=== PATIENT | male | born 1995 | race Caucasian/White ===

== ENCOUNTER 2021-11-22 07:10 | Emergency (ER) | payer MEDICARE, MEDICAID, SELFPAY ==
[2021-11-22 07:24] VITALS: BP 120/80; PULSE 65; RESP 15; TEMP 36.8; O2SAT 98; BMI 35.4
--- NOTE | 2021-11-22 07:49 | W.ED.ABDPA2 ---
HPI - Abdominal Pain General: Chief Complaint: Abdominal Pain Stated Complaint: Sharp left side pain Time Seen by Provider: 11/22/21 07:11 Source: patient Mode of arrival: ambulatory History of Present Illness: 86-year-old male who presents emergency room with complaint of left-sided abdominal pain. Intermittent but progressively worsening over the last 5 days. He denies any association with eating or drinking. No association with urination. No vomiting no diarrhea no dysuria urgency or frequency no history of nephrolithiasis. He has not had any rash. He refers the pain to the posterior axillary line on the left flank it is not reproducible with palpation or movement. No injury or falls recently. MD elicited complaint: flank pain Onset (ago): day(s) (5) Pain Consistency: intermittent Location: L flank Severity: mild Quality: sharp Radiation: none Migration to: no migration Exacerbating factors: nothing Relieving factors: nothing Associated Symptoms: Denies anorexia, belching, bloating, change in bowel habits, change in stool character, chills, coffee ground emesis, constipation, GI cramping, diarrhea, dyspepsia, dysuria, excessive flatus, fever(s), heartburn, hematochezia, hematuria, hematemesis, fecal incontinence, loose stools, melena, nausea, poor appetite, syncope and vomiting Review of Systems Const: Denies: fever(s), chills, fatigue or malaise ENMT: Denies: throat pain, ear or mastoid pain, nasal discharge or nasal congestion Card: Denies: chest pain or syncope Resp: Denies: dyspnea, productive cough or non-productive cough GI: Denies: abdominal pain, nausea, vomiting, hematemesis, coffee ground emesis, heartburn, diarrhea, constipation, bloating, GI cramping, belching, excessive flatus, fecal incontinence, change in bowel habits, change in stool character, hematochezia or melena : Denies: flank pain, dysuria or hematuria Skin/Breast: Denies: rash or pruritus [facility] ED PFSH: Medical History Atypical chest pain Dandy-Walker syndrome variant Dizziness Elevated blood pressure reading LVH (left ventricular hypertrophy) Family History Other CAD (coronary artery disease) Cancer Dementia Diabetes Hyperlipidemia Hypertension Psychiatric illness Stroke Denies family history of Clotting disorder Chronic kidney disease (CKD) Anesthesia complication Bleeding disorder Family history of premature coronary artery disease Social History Smoking and tobacco status: never smoked Alcohol intake: never Physical Exam Const: COMMON NORMALS: no acute distress GENERAL APPEARANCE: cooperative and comfortable ORIENTATION/CONSCIOUSNESS: Yes awake, Yes oriented to person, Yes oriented to place and Yes oriented to time HENMT: COMMON NORMALS: normocephalic, atraumatic, hearing grossly normal bilaterally, external ears normal, EAC's normal, TM's normal bilaterally, Normal nasal mucous membranes and turbinates present, moist oral mucous membranes and oropharynx normal HEAD & SCALP: normocephalic and atraumatic NOSE: Normal nasal mucous membranes and turbinates present EXTERNAL EAR: Yes external ears normal EXTERNAL AUDITORY CANAL: EAC's normal TYMPANIC MEMBRANE: TM's normal bilaterally Eye: COMMON NORMALS: Equal, round and reactive pupils present, EOMs intact bilaterally, conjunctivae normal and no scleral icterus CONJUNCTIVA: Yes conjunctivae normal PUPIL: Yes Equal, round and reactive pupils present Neck/C-Spine: COMMON NORMALS: full ROM, no lymphadenopathy, supple and no JVD Lymph: LYMPHATIC: no lymphadenopathy noted and no lymphedema noted Resp: COMMON NORMALS: normal respiratory effort, No retractions, No use of accessory muscles and clear to auscultation bilaterally AUSCULTATION: clear to auscultation bilaterally Cardio: COMMON NORMALS: no JVD, regular rate, regular rhythm and No murmurs present (Cardio) RATE: regular rate RHYTHM: regular rhythm GI: COMMON NORMALS: Soft to palpation and No hepatosplenomegaly present AUSCULTATION: Yes normoactive bowel sounds PALPATION: Yes Soft to palpation, No Tenderness to palpation present (GI), No Guarding due to palpation present (GI) and Yes No hepatosplenomegaly present Back/Pelvis: OTHER: Pain reproducible with palpation along the posterior axillary line at the levels of the ninth and 10th ribs overlying them. No rash no vesicles noted Extremity: COMMON NORMALS: normal to inspection, capillary refill normal, no clubbing, cyanosis or edema, no calf tenderness and no pedal edema Neuro: SENSORIUM/ORIENTATION: Yes oriented to person, Yes oriented to place and Yes oriented to time Skin: COMMON NORMALS: no rashes or lesions noted GENERAL SKIN EXAM: no rashes or lesions noted Course Vital Signs: Vital signs: Vital Signs Temperature 98.2 F 11/22/21 07:24 Pulse Rate 65 11/22/21 07:24 Respiratory Rate 15 11/22/21 07:24 Blood Pressure 120/80 11/22/21 07:24 Pulse Oximetry 98 11/22/21 07:24 Oxygen Delivery Me thod 11/22/21 07:24 MDM - Abdominal Pain Medical Decision Making Abdominal exam unremarkable. Pain reproduced with palpation over the ribs laboratory results do not indicate any significant abnormality. Recommend observation treat his musculoskeletal follow-up if worsens or changes. Medical Records I reviewed the patient's medical records. Lab Data I reviewed the patient's lab results. : 11/22/21 07:54 11/22/21 07:54 Labs/Radiology: Laboratory Results WBC 8.1 10^3/uL (4.0-10.0) 11/22/21 07:54 RBC 5.31 10^6/uL (4.1-5.3) H 11/22/21 07:54 Hgb 16.3 g/dL (11.7-16.6) 11/22/21 07:54 Hct 47.8 % (42.0-52.0) 11/22/21 07:54 MCV 90.0 fl (80-94) 11/22/21 07:54 MCH 30.7 pg (28.0-34.0) 11/22/21 07:54 MCHC 34.1 g/dL (30.0-36.0) 11/22/21 07:54 RDW 11.7 % (12.1-15.1) L 11/22/21 07:54 Plt Count 287 10^3/cmm (130-400) 11/22/21 07:54 MPV 9.7 fL (7.4-10.4) 11/22/21 07:54 Neut % (Auto) 53.5 % 11/22/21 07:54 Lymph % (Auto) 31.7 % 11/22/21 07:54 [place] % (Auto) 9.2 % 11/22/21 07:54 Eos % (Auto) 3.2 % 11/22/21 07:54 Baso % (Auto) 0.5 % 11/22/21 07:54 Neut # (Auto) 4.31 10^3/uL (1.8-7.7) 11/22/21 07:54 Lymph # (Auto) 2.6 10^3/uL (0.8-4.8) 11/22/21 07:54 [place] # (Auto) 0.7 10^3/uL (0.2-0.9) 11/22/21 07:54 Eos # (Auto) 0.3 10^3/uL (0.0-0.8) 11/22/21 07:54 Baso # (Auto) 0.0 10^3/uL (0.0-0.1) 11/22/21 07:54 Nucleated RBC % (auto) 0 % 11/22/21 07:54 Nucleated RBCs # 0.0 /100WBC 11/22/21 07:54 Sodium 143 mmol/L (136-145) 11/22/21 07:54 Potassium 4.7 mmol/L (3.5-5.1) 11/22/21 07:54 Chloride 103 mmol/L (98-107) 11/22/21 07:54 Carbon Dioxide 30 mmol/L (22-29) H 11/22/21 07:54 Anion Gap 14.7 (5-19) 11/22/21 07:54 BUN 15 mg/dL (6-20) 11/22/21 07:54 Creatinine 0.9 mg/dL (0.7-1.2) 11/22/21 07:54 GFR Calculation 102.0 mL/min (90-130) 11/22/21 07:54 Glucose 84 mg/dL (65-115) 11/22/21 07:54 Calculated Osmolality 296 mOsm/kg (285-295) H 11/22/21 07:54 Calcium 9.6 mg/dL (8.5-10.5) 11/22/21 07:54 Total Bilirubin 0.4 mg/dL (0.15-1.2) 11/22/21 07:54 AST 25 U/L (0-40) 11/22/21 07:54 ALT 51 U/L (0-41) H 11/22/21 07:54 Alkaline Phosphatase 109 U/L (40-130) 11/22/21 07:54 Total Protein 7.3 g/dL (6.6-8.7) 11/22/21 07:54 Albumin 4.4 g/dL (3.5-5.2) 11/22/21 07:54 Globulin 2.9 g/dL (1.3-4.6) 11/22/21 07:54 Lipase 30 U/L (13-60) 11/22/21 07:54 Urine Color Yellow (Yellow) 11/22/21 08:20 Urine Appearance Clear (CLEAR) 11/22/21 08:20 Urine pH 7 (5-7) 11/22/21 08:20 Ur Specific [place] 1.010 (1.005-1.030) 11/22/21 08:20 Urine Protein Neg (Negative) 11/22/21 08:20 Urine Glucose (UA) Norm (Normal) 11/22/21 08:20 Urine Ketones 1+ (Negative) H 11/22/21 08:20 Urine Blood Neg (Negative) 11/22/21 08:20 Urine Nitrate Negative (Negative) 11/22/21 08:20 Urine Bilirubin Neg (Negative) 11/22/21 08:20 Urine Urobilinogen 1 mg/dL (Negative) H 11/22/21 08:20 Ur Leukocyte Esterase Negative (Negative) 11/22/21 08:20 Discharge Plan Discharge Patient Disposition: Home Clinical Impression: Abdominal wall pain in left flank Condition: Stable Prescriptions: New diclofenac sodium 75 mg tablet,delayed release (DR/EC) 75 mg PO Q12H PRN (Reason: pain) Qty: 20 0RF No Action loratadine 10 mg capsule 10 mg PO DAILY Discharge Orders: Discharge ED (Routine); Ordered 11/22/21 Ordered By: Geovani Molina Referrals: Jadon Garcia MD [Primary Care Provider] - Discharge Diet: Usual diet Discharge Activity: Increase activity as tolerated Patient Instructions: Abdominal Pain (ED), Opioid Safety Activity Restrictions/Additional Instructions: Follow-up with your primary care doctor if symptoms persist. Coding Level of Care Code ED Under Water Assistant for [place] Fwd Exam Comprehensive
[2021-11-22 08:01] LABS: Basophils % 0.5 %; Eosinophils # 0.3 10^3/uL (0.0-0.8); Eosinophils % 3.2 %; Hematocrit 47.8 % (42.0-52.0); Hemoglobin 16.3 g/dL (11.7-16.6); Lymphocytes # 2.6 10^3/uL (0.8-4.8); Lymphocytes % 31.7 %; Mean Corpuscular HGB Conc 34.1 g/dL (30.0-36.0); Mean Corpuscular Hemoglobin 30.7 pg (28.0-34.0); Mean Platelet Volume 9.7 fL (7.4-10.4); Monocytes # 0.7 10^3/uL (0.2-0.9); Monocytes % 9.2 %; Neutrophils # 4.31 10^3/uL (1.8-7.7); Neutrophils % 53.5 %; Nucleated Red Blood Cells % 0 %; Platelet Count 287 10^3/cmm (130-400); Red Blood Count 5.31 10^6/uL (4.1-5.3); Red Cell Distribution Width 11.7 % (12.1-15.1); White Blood Count 8.1 10^3/uL (4.0-10.0)
[2021-11-22] MEDS: sodium chloride 0.9% 1,000 ML 999 ML IV (08:02)
[2021-11-22 08:28] LABS: Alanine Aminotransferase 51 U/L (0-41); Albumin Level 4.4 g/dL (3.5-5.2); Alkaline Phosphatase 109 U/L (40-130); Blood Urea Nitrogen 15 mg/dL (6-20); Calcium 9.6 mg/dL (8.5-10.5); Carbon Dioxide 30 mmol/L (22-29); Chloride 103 mmol/L (98-107); Globulin 2.9 g/dL (1.3-4.6); Glucose 84 mg/dL (65-115); Lipase 30 U/L (13-60); Osmolality Calculated 296 mOsm/kg (285-295); Sodium 143 mmol/L (136-145); Total Bilirubin 0.4 mg/dL (0.15-1.2); Total Protein 7.3 g/dL (6.6-8.7)
[2021-11-22 08:29] LABS: Add Urine Microscopic? NO; Charge for UA Resulting for Rev
[2021-11-22 08:36] LABS: Anion Gap 14.7 (5-19); Aspartate Amino Transferase 25 U/L (0-40); Potassium 4.7 mmol/L (3.5-5.1)
[2021-11-22 08:48] LABS: Bilirubin Urine Neg (Negative); Blood Urine Neg (Negative); Glucose Urine UA Norm (Normal); Ketones Urine 1+ (Negative); Leukocyte Esterase Urine Negative (Negative); Nitrate Urine Negative (Negative); Protein Urine Neg (Negative); Urine Appearance Clear (CLEAR); Urine Color Yellow (Yellow); Urobilinogen Urine 1 mg/dL (Negative); pH Urine 7 (5-7)
[2021-11-22 09:35] VITALS: BP 136/72; PULSE 78; RESP 14; O2SAT 99
[2021-11-22 09:36] VITALS: BP 128/70; PULSE 72; RESP 14; O2SAT 99
== END 2021-11-22 09:38 | disposition home or self-care (01) ==
PROVIDERS: Emergency Provider Family Medicine; PCP Family Medicine
DX: R10.9 Unspecified abdominal pain (principal)
CPT/HCPCS: 80053; 81003; 83690; 85025; 96360; 99284; J7030

== ENCOUNTER 2022-01-11 23:28 | Observation (INO) | payer MEDICARE, MEDICAID, SELFPAY ==
[2022-01-11 23:36] VITALS: BP 120/83; PULSE 90; RESP 18; TEMP 37.1; O2SAT 98; BMI 35.3
--- NOTE | 2022-01-11 23:42 | ECG_ITS ---
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 Measurements Intervals [place] Rate: 83 P: 60 CT: 113 QRS: 32 QRSD: 87 T: 71 QT: 361 QTc: 426 Interpretive Statements SINUS RHYTHM WITH SHORT CT INTERVAL No previous ECG available for comparison Electronically Signed On 01-12-2022 16:48:13 CDT by Olga Melendez M.D. [email or web address] | EVEREST EDUSYS AND SOLUTIONSgeorge regional hospitalAito Technologiespomerene hospital.L[employer] Bronze/store/00/[id number]/[id number]"
--- NOTE | 2022-01-11 23:45 | XRR_ITS ---
PROCEDURE INFORMATION: Exam: XR Chest Exam date and time: 01/12/2022 12:11 AM Age: 27 years old Clinical indication: Pain; Chest pressure; Additional info: Cp TECHNIQUE: Imaging protocol: Radiologic exam of the chest. Views: 1 view. COMPARISON: CR XR chest 2V* [id number] 07/31/2016 9:57 AM FINDINGS: Lungs: There is no evidence of focal pulmonary consolidation. There is a small area of pleuroparenchymal scarring in the periphery of the right upper lobe, unchanged from the comparison study of 07/31/2016. Pleural spaces: No pleural effusion or pneumothorax. Heart/Mediastinum: The heart and mediastinum are normal in size. Bones/joints: Unremarkable. XR/XR chest 1V portable [id number] IMPRESSION: No acute findings.
[2022-01-12] VITALS (36 sets, daily range): BP systolic 99–144; BP diastolic 58–97; PULSE 64–107; RESP 13–26; TEMP 36.3–36.8; O2SAT 94–99
--- NOTE | 2022-01-12 01:01 | W.ED.CHESTPA ---
HPI - Chest Pain General: Chief Complaint: Chest Pain Stated Complaint: chest discomfort, shaking Time Seen by Provider: 01/11/22 23:29 Source: patient Mode of arrival: ambulatory Limitations: no limitations History of Present Illness: 27-year-old male who states that he had an episode of chest pain tonight at 10 PM he states it was a sharp pain in the right side of his chest lasted roughly an hour he states been pain-free since then he denies any shortness of breath he denies any worsening improving factors. He denies any vomiting or diarrhea he has no history of heart disease. Associated symptoms: Deny abdominal pain, dyspnea, fever(s), nausea or vomiting Review of Systems Const: Denies: fever(s), chills, body aches or change in appetite Eyes: Denies: blurry vision or eye discomfort ENMT: Denies: throat pain or dental pain Card: Reports: chest pain Resp: Denies: dyspnea GI: Denies: abdominal pain, nausea, vomiting or diarrhea : Denies: dysuria Musc: Denies: neck pain or back pain Skin/Breast: Denies: rash Neuro: Denies: headache(s) Psych: Denies: depression Jason/Lymph: Denies: easy bruising All/Imm: Denies: urticaria PFSH ED PFSH: Medical History Atypical chest pain Dandy-Walker syndrome variant Dizziness Elevated blood pressure reading LVH (left ventricular hypertrophy) Family History Other CAD (coronary artery disease) Cancer Dementia Diabetes Hyperlipidemia Hypertension Psychiatric illness Stroke Denies family history of Clotting disorder Chronic kidney disease (CKD) Anesthesia complication Bleeding disorder Family history of premature coronary artery disease Social History Smoking and tobacco status: never smoked Alcohol intake: never Physical Exam Const: COMMON NORMALS: no acute distress, patient oriented x3 and healthy appearing HENMT: COMMON NORMALS: normocephalic and atraumatic HEAD & SCALP: normocephalic and atraumatic Eye: COMMON NORMALS: Equal, round and reactive pupils present and EOMs intact bilaterally PUPIL: Yes Equal, round and reactive pupils present Neck/C-Spine: COMMON NORMALS: full ROM and supple Chest: COMMONS NORMALS: normal inspection of the chest and normal palpation of entire chest wall Resp: COMMON NORMALS: normal respiratory effort, No retractions, No use of accessory muscles and clear to auscultation bilaterally AUSCULTATION: clear to auscultation bilaterally Cardio: COMMON NORMALS: regular rate, regular rhythm and No murmurs present (Cardio) RATE: regular rate RHYTHM: regular rhythm GI: COMMON NORMALS: Normal to inspection, nondistended, normoactive bowel sounds present, Soft to palpation, non-tender and no masses PALPATION: Yes Soft to palpation Extremity: COMMON NORMALS: normal to inspection and full ROM Neuro: COMMON NORMALS: patient oriented x3, moves all extremities and no focal motor deficits Psych: COMMON NORMALS: mental status grossly normal, Normal thought process present and cooperative THOUGHT PROCESS: Normal thought process present Skin: COMMON NORMALS: no rashes or lesions noted and no wounds GENERAL SKIN EXAM: no rashes or lesions noted Course Vital Signs: Vital signs: Vital Signs Temperature 98.7 F 01/11/22 23:36 Pulse Rate 65 01/12/22 02:06 Respiratory Rate 15 01/12/22 02:06 Blood Pressure 144/86 01/12/22 02:06 Pulse Oximetry 95 01/12/22 02:06 Oxygen Delivery Me thod Aerosol Mask 01/11/22 23:36 MDM - Chest Pain Medical Decision Making Patient presents here with chest pain along with an elevated troponin he has been chest pain-free here EKG is normal spoke to hospitalist Dr. Vergara and will admit for observation to trend troponins. Lab Data : 01/12/22 01:08 01/12/22 01:08 Radiology Impressions Chest X-Ray 01/11/22 23:45 IMPRESSION: No acute findings. Laboratory Results WBC 9.8 10^3/uL (4.0-10.0) 01/12/22 01:08 RBC 5.00 10^6/uL (4.1-5.3) 01/12/22 01:08 Hgb 15.3 g/dL (11.7-16.6) 01/12/22 01:08 Hct 44.9 % (42.0-52.0) 01/12/22 01:08 MCV 89.8 fl (80-94) 01/12/22 01:08 MCH 30.6 pg (28.0-34.0) 01/12/22 01:08 MCHC 34.1 g/dL (30.0-36.0) 01/12/22 01:08 RDW 11.7 % (12.1-15.1) L 01/12/22 01:08 Plt Count 284 10^3/cmm (130-400) 01/12/22 01:08 MPV 9.5 fL (7.4-10.4) 01/12/22 01:08 Neut % (Auto) 62.5 % 01/12/22 01:08 Lymph % (Auto) 26.1 % 01/12/22 01:08 [place] % (Auto) 8.7 % 01/12/22 01:08 Eos % (Auto) 1.2 % 01/12/22 01:08 Baso % (Auto) 0.3 % 01/12/22 01:08 Neut # (Auto) 6.09 10^3/uL (1.8-7.7) 01/12/22 01:08 Lymph # (Auto) 2.6 10^3/uL (0.8-4.8) 01/12/22 01:08 [place] # (Auto) 0.9 10^3/uL (0.2-0.9) 01/12/22 01:08 Eos # (Auto) 0.1 10^3/uL (0.0-0.8) 01/12/22 01:08 Baso # (Auto) 0.0 10^3/uL (0.0-0.1) 01/12/22 01:08 Nucleated RBC % (auto) 0 % 01/12/22 01:08 Nucleated RBCs # 0.0 /100WBC 01/12/22 01:08 D-Dimer <= 0.27 ug/mIFEU (0-0.59) 01/12/22 01:08 Sodium 141 mmol/L (136-145) 01/12/22 01:08 Potassium 3.8 mmol/L (3.5-5.1) 01/12/22 01:08 Chloride 103 mmol/L (98-107) 01/12/22 01:08 Carbon Dioxide 27 mmol/L (22-29) 01/12/22 01:08 Anion Gap 14.8 (5-19) 01/12/22 01:08 BUN 16 mg/dL (6-20) 01/12/22 01:08 Creatinine 1.0 mg/dL (0.7-1.2) 01/12/22 01:08 GFR Calculation 89.6 mL/min (90-130) L 01/12/22 01:08 Glucose 99 mg/dL (65-115) 01/12/22 01:08 Calculated Osmolality 293 mOsm/kg (285-295) 01/12/22 01:08 Calcium 9.2 mg/dL (8.5-10.5) 01/12/22 01:08 Total Bilirubin 0.4 mg/dL (0.15-1.2) 01/12/22 01:08 AST 19 U/L (0-40) 01/12/22 01:08 ALT 33 U/L (0-41) 01/12/22 01:08 Alkaline Phosphatase 96 U/L (40-130) 01/12/22 01:08 Troponin T Baseline 41 ng/L (0-15) H 01/12/22 01:08 Troponin T 120 Minute 73.42 ng/L (0-15) H 01/12/22 02:35 Delta Troponin T 32.42 ABS# (0-10) H* 01/12/22 02:35 Total Protein 6.9 g/dL (6.6-8.7) 01/12/22 01:08 Albumin 4.2 g/dL (3.5-5.2) 01/12/22 01:08 Globulin 2.7 g/dL (1.3-4.6) 01/12/22 01:08 EKG Data EKG 1: I personally reviewed and interpreted this EKG as follows: EKG interpretation date: 01/11/22 EKG interpretation time: 23:42 Interpretation: nsr hr [address] or t wave abnormalities qrs 87 qtc 401 Discharge Plan Discharge Patient Disposition: Admitted As Inpatient Admit Provider: Winsome Vergara Clinical Impression: Non-ST elevation ME (NSTEMI) Condition: Stable Coding Level of Care Code ED Leather Novelty Parts Cutter for Chg Fwd Exam Comprehensive
[2022-01-12 01:15] LABS: Basophils % 0.3 %; Eosinophils # 0.1 10^3/uL (0.0-0.8); Eosinophils % 1.2 %; Hematocrit 44.9 % (42.0-52.0); Hemoglobin 15.3 g/dL (11.7-16.6); Lymphocytes # 2.6 10^3/uL (0.8-4.8); Lymphocytes % 26.1 %; Mean Corpuscular HGB Conc 34.1 g/dL (30.0-36.0); Mean Corpuscular Hemoglobin 30.6 pg (28.0-34.0); Mean Corpuscular Volume 89.8 fl (80-94); Mean Platelet Volume 9.5 fL (7.4-10.4); Monocytes # 0.9 10^3/uL (0.2-0.9); Monocytes % 8.7 %; Neutrophils # 6.09 10^3/uL (1.8-7.7); Neutrophils % 62.5 %; Nucleated Red Blood Cells % 0 %; Platelet Count 284 10^3/cmm (130-400); Red Cell Distribution Width 11.7 % (12.1-15.1); White Blood Count 9.8 10^3/uL (4.0-10.0)
[2022-01-12 01:41] LABS: Alanine Aminotransferase 33 U/L (0-41); Albumin Level 4.2 g/dL (3.5-5.2); Alkaline Phosphatase 96 U/L (40-130); Anion Gap 14.8 (5-19); Aspartate Amino Transferase 19 U/L (0-40); Blood Urea Nitrogen 16 mg/dL (6-20); Calcium 9.2 mg/dL (8.5-10.5); Carbon Dioxide 27 mmol/L (22-29); Chloride 103 mmol/L (98-107); Globulin 2.7 g/dL (1.3-4.6); Glomerular Filtration Rate 89.6 mL/min (90-130); Glucose 99 mg/dL (65-115); Osmolality Calculated 293 mOsm/kg (285-295); Potassium 3.8 mmol/L (3.5-5.1); Sodium 141 mmol/L (136-145); Total Bilirubin 0.4 mg/dL (0.15-1.2); Total Protein 6.9 g/dL (6.6-8.7)
[2022-01-12 01:42] LABS: Troponin(5th) Baseline 41 ng/L (0-15)
--- NOTE | 2022-01-12 01:45 | ECG_ITS ---
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 Measurements Intervals [place] Rate: 70 P: 66 MS: 112 QRS: 43 QRSD: 95 T: 67 QT: 393 QTc: 427 Interpretive Statements SINUS RHYTHM WITH SHORT MS INTERVAL EARLY REPOLARIZATION [ST ELEVATION WITH NORMALLY INFLECTED T-WAVE] Compared to ECG 01/11/2022 23:42:31 Early repolarization now present Electronically Signed On 01-12-2022 16:53:19 CDT by Olga Melendez M.D. [email or web address] olive branch hospitalEnergy Exceleratorpaulding county hospital.AppGratis/store/OM/[id number]
[2022-01-12 03:12] LABS: Troponin 5 2HR 73.42 ng/L (0-15)
[2022-01-12 03:17] LABS: Troponin 5 2HR Delta 32.42 ABS# (0-10)
[2022-01-12] MEDS: enoxaparin 100 mg/mL Syringe 90 MG SUBCUT (03:29)
[2022-01-12 03:35] LABS: D Dimer <= 0.27 ug/mIFEU (0-0.59)
--- NOTE | 2022-01-12 06:15 | ECG_ITS ---
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 Measurements Intervals [place] Rate: 62 P: 36 [place]: 110 QRS: 24 QRSD: 93 T: 27 QT: 410 QTc: 419 Interpretive Statements SINUS RHYTHM WITH SHORT [place] INTERVAL Compared to ECG 01/12/2022 02:32:02 Early repolarization no longer present Electronically Signed On 01-12-2022 16:53:23 CDT by Olga Melendez M.D. [email or web address] [email or web address] [email or web address] medical centerPostRocket/store/[id number]
--- NOTE | 2022-01-12 06:28 | PM.HP ---
Providers/Chief Complaint Admitting Physician: Winsome Vergara MD Primary Care Provider: Bro Mahoney MD Chief Complaint: chest discomfort, shaking History of Present Illness Jose Juan Vázquez is a 27 year old male with no significant past noted medical history presenting today with complains of chest pain. Patient states that the pain woke him up while he was sleeping. This was at 10:10 PM at night. It was located in the upper part of the chest radiating to the right side of the chest. He woke up and walked in the house to notify his family. Pain was not made worse by exertion. Appears to have spontaneously subsided. He denies does not endorse taking any medications. By the time he presented to the emergency room his pain had resolved. While undergoing evaluation he was noted to have elevated baseline troponin at 41, at 2 hours increased to 73 with a delta of 32. Pending 6-hour troponin at this time. EKG without any acute ST-T wave changes. Patient denies any complains of orthopnea PND dyspnea. He has been is in his usual state of health. Does not recall having had any recent URI symptoms over the past 2 to 3 months. No history of dysuria. No history of joint pain or swelling. No family history of premature CAD or vasculitis. He was born prematurely, weighed 1 pound at , he has had some cognitive developmental issues, however I am unable to a certain what exactly these are. He is alert awake oriented, completely appropriate in conversation. Patient states that several years ago he was notified by his primary care physician Dr. Garcia that he has wall in his heart. Apparently this was determined based off of an audible murmur. He does not recall if he ever had an echocardiogram in follow-up. Review of Systems General: Reports: 10 or more systems reviewed and unremarkable except in HPI and below Const: Denies: fever(s), chills or body aches Eyes: Denies: change in vision, blurry vision or photophobia ENMT: Reports: hoarseness; Denies: throat pain, enlarged tonsils, odynophagia or nasal congestion Card: Denies: chest pain, palpitations, irregular heart rhythm, edema, swelling of feet/ankles, lightheadedness, pre-syncope, dyspnea on exertion or orthopnea Resp: Denies: dyspnea, productive cough, non-productive cough, wheezing, stridor, pain on inspiration, change in phlegm color, hemoptysis or chest congestion GI: Denies: abdominal pain, nausea, vomiting, hematemesis, coffee ground emesis, dysphagia, heartburn, diarrhea, constipation, GI cramping, change in stool character, hematochezia or melena : Denies: flank pain, dysuria, urinary frequency, urinary urgency, urinary hesitancy or hematuria Musc: Denies: neck pain, back pain, extremity pain, joint swelling, joint warmth or deformity Neuro: Denies: headache(s), numbness in extremities, weakness in extremities, sensory changes, difficulty walking, frequent falls, dizziness, vertigo, behavioral changes, Slurred speech present or seizure-like activity Psych: Denies: anxiety, depression, suicidal ideation or homicidal ideation Endo: Denies: polyuria, polydipsia, tired all the time, cold intolerance or hot flashes Jason/Lymph: Denies: easy bruising or easy bleeding Medications/Allergies Home Medications Medication Instructions Recorded Confirmed Last Taken Type diclofenac sodium 75 mg 75 mg PO Q12H PRN Pain 01/12/22 01/12/22 01/11/22 22:20 History tablet,delayed release divalproex 250 mg tablet,delayed 250 mg PO 2XD 01/12/22 01/12/22 Unknown History release fluticasone propionate 50 2 spray intranasal DAILY 01/12/22 01/12/22 Unknown History mcg/actuation nasal spray,suspension venlafaxine 150 mg 150 mg PO DAILY 01/12/22 01/12/22 Unknown History capsule,extended release 24 hr Allergies Allergy/AdvReac Type Severity Reaction Status Date / Time meperidine [From Demerol] Allergy Unknown unknown Verified 02/22/20 15:25 Penicillins Allergy Unknown unknown Verified 02/22/20 15:25 PFSH Acute PFSH: Medical History Atypical chest pain Dandy-Walker syndrome variant Dizziness Elevated blood pressure reading LVH (left ventricular hypertrophy) Family History Other CAD (coronary artery disease) Cancer Dementia Diabetes Hyperlipidemia Hypertension Psychiatric illness Stroke Denies family history of Clotting disorder Chronic kidney disease (CKD) Anesthesia complication Bleeding disorder Family history of premature coronary artery disease Social History Smoking and tobacco status: never smoked Alcohol intake: never Vitals/I&O/Wt Last Vital Signs Temp 97.5 F L 01/12/22 04:15 Pulse 73 01/12/22 06:00 Resp 14 01/12/22 04:15 BP 136/81 01/12/22 04:15 Pulse Ox 99 01/12/22 04:15 O2 Del Method 01/12/22 04:15 Weight last 48 hrs Weight 90.446 kg Physical Exam Narrative: General: No acute distress, AO x3 HEENT: PERRLA, pupils bilaterally equal and reactive, pallors not present Chest: Normal vesicular breath sounds, no added sounds, equal good air entry bilaterally CVS: S1-S2 regular, no murmurs, no tachycardia, no gallops, no rubs Abdomen: Soft, nontender, no organomegaly, bowel sounds present Neuro: No focal deficits, no facial deformity, AO x3, power 5/5 in all limbs Extremities: no edema, swelling or LAD Data : 01/12/22 01:08 01/12/22 01:08 A&P Assessment and plan (1) Non-ST elevation LA (NSTEMI): Patient presenting today with atypical chest pain. EKG without any acute ST-T wave changes, however noted to have elevated baseline troponin with a delta of 32 at 2 hours. Pending 6-hour delta at the time of assessment. Differentials at this time include NSTEMI, however would be ordered in a 27-year-old patient with no other underlying risk factors such as hypertension diabetes, family history of premature coronary artery disease, known vasculitis etc. Other possibilities are cardiomyopathy perhaps from a recent viral illness though patient does not recall any recent viral URIs. No recent history of UTI or diarrhea either. Will check for possibility of COVID though may be asymptomatic with regards to respiratory symptoms. Reports a past history of a wall in the heart, uncertain if he is referring to heart valves. Patient was born prematurely and may have underlying congenital heart disease. Echocardiogram has been ordered to assess for the same. JELANI screen for vasculitis though does not endorse any other symptoms such as skin rash joint swelling or inflammation. Attestations Medical Necessity Statement*: Anticipate less than 2 midnight admission for evaluation of atypical chest pain. Coding Level of Care Code Acute Bleacher Kraft Pulp for Chg Fwd Diagnoses Non-ST elevation LA (NSTEMI) I21.4
--- NOTE | 2022-01-12 07:48 | USCV_ITS ---
Jose Juan Vázquez Age: 27 Gender: M : 1995 Exam Date: 01/12/2022 09:42 Ordering Phys: Winsome Vergara MD Technologist: IFTIKHAR Exam Location: [facility] [place] Indication: NSTEMI, CHEST PAIN BP: 138 / 88 HR: 74 Rhythm: Sinus Technical Quality: Adequate MEASUREMENTS (Male / Female) Normal Values 2D ECHO LVOT Diameter 2.0 cm LV Ejection Fraction MOD 2C 62.1 % LV Ejection Fraction 2C AL 61.0 % LA Diameter 3.1 cm LA Width 2.7 cm LA Height 4.3 cm RA Width 3.1 cm RA Height 3.4 cm Aorta at Sinotubular Diameter 2.1 cm M-MODE Aortic Annulus Diameter 2.5 cm LA Ao Ratio MM 1.1 MV E Point Septal Separation 0.3 cm DOPPLER AV Peak Velocity 105.0 cm/s LVOT Peak Velocity 67.0 cm/s AV Area Cont Eq vti 2.7 cm squared AV Area Cont Eq pk 2.0 cm squared MV Peak Velocity 80.0 cm/s MV Area PHT 3.7 cm squared Mitral E to A Ratio 1.1 MV E' Velocity 43.5 cm/s Mitral E to MV E' Ratio 6.4 Mitral E to LV E' Lateral Ratio 5.6 Mitral E to LV E' Septal Ratio 7.6 TR Peak Velocity 136.2 cm/s TR Peak Gradient 7.4 mmHg TR Mean Velocity 105.8 cm/s TR Mean Gradient 4.7 mmHg TR Velocity Time Integral 29.1 cm TV Peak E Velocity 59.0 cm/s Right Atrial Pressure 8.0 mmHg Pulmonary Artery Systolic Pressu 15.4 mmHg PV Peak Velocity 98.0 cm/s RV Acceleration Time 0.1 s RV Ejection Time 0.3 s RV AcT/ET 0.4 FINDINGS Left Ventricle Normal left ventricular size, systolic function with no regional wall motion abnormalities. Left ventricular ejection fraction is estimated at 65 %. Normal diastolic function. Right Ventricle Normal right ventricular size and systolic function. RVSP could not be calculated due to incomplete tricuspid regurgitation velocity profile. Right Atrium Normal right atrial size. Left Atrium Normal left atrial size. Mitral Valve Structurally normal mitral valve. No mitral valve stenosis. No mitral valve regurgitation. Aortic Valve Aortic valve not well visualized. Probably trileaflet aortic valve. No aortic valve stenosis. No aortic valve regurgitation. Tricuspid Valve Structurally normal tricuspid valve. No tricuspid valve stenosis. Trace tricuspid valve regurgitation. Pulmonic Valve Pulmonic valve not well visualized. No pulmonary valve stenosis. No pulmonary valve regurgitation. Pericardium No pericardial effusion. Aorta Normal-sized aortic root. IVC Inferior vena cava not visualized. CONCLUSIONS 1. This is a technically difficult study with poor parasternal and subcoastal windows. 2. Normal left ventricular size, systolic function with no regional wall motion abnormalities. Left ventricular ejection fraction is estimated at 65 %. Normal diastolic function. 3. Normal right ventricular size and systolic function. 4. No significant valvular abnormality. 5. When compared to study dated 01/12/2022, there may not have been any significant change. Fouzia Roman MD (Electronically Signed) Final Date: 12 January 2022 10:46 S
[2022-01-12 07:51] LABS: Troponin 5 6HR 84.43 ng/L (0-15)
[2022-01-12 07:53] LABS: Troponin 5 6HR Delta 43.43 ng/L (0-12)
[2022-01-12] MEDS: aspirin 81 mg EC Tablet PO (08:44)
[2022-01-12] MEDS: clopidogrel 75 mg Tablet PO (08:44)
[2022-01-12] MEDS: lisinopril 10 mg Tablet PO (08:45)
[2022-01-12] MEDS: clopidogrel 300 mg Tablet PO (08:45)
[2022-01-12] MEDS: pantoprazole DR 40 mg Tablet PO (08:45)
--- NOTE | 2022-01-12 08:56 | P.CONIM_ITS ---
Providers/Reason For Consult Consulting Physician/Specialty*: Dr. Roman, Cardiology Reason for Consult*: Chest pain, elelvated troponin Attending Physician: Winsome Vergara MD Primary Care Provider: Bro Mahoney MD History of Present Illness History of Present Illness Jose Juan Vázquez is a 27 year old male presented with complains of chest pain. Chest pain 10/10 sharp, stabbing in nature started around 10 pm last night substernal and to the right side of his chest that did not change with position change or inspiration. It lasted for about 1 hr and then subsided. No associated symptoms. No palpitations or heart racing at the time. He denies any recent viral illness or sick contacts. He is a non smoker. He does not vape, use illicit drugs or drink alcohol. His father has h/o HTN and paternal grandfather with heart attack and stroke in his late 40's. He came to ER for further evaluation. He has remained chest pain free since then. Review of Systems General: Reports: 10 or more systems reviewed and unremarkable except in HPI and below Const: Denies: fever(s), chills or body aches Eyes: Denies: change in vision, blurry vision or photophobia ENMT: Denies: throat pain Card: Denies: chest pain, palpitations, irregular heart rhythm, edema, swelling of feet/ankles, lightheadedness, pre-syncope, dyspnea on exertion or orthopnea Resp: Denies: dyspnea, productive cough, wheezing or pain on inspiration GI: Denies: abdominal pain, nausea, vomiting, hematemesis, coffee ground emesis, dysphagia, heartburn, diarrhea, constipation, GI cramping, change in stool character, hematochezia or melena : Denies: flank pain, dysuria, urinary frequency, urinary urgency, urinary hesitancy or hematuria Musc: Denies: neck pain, back pain, extremity pain, joint swelling, joint warmth or deformity Neuro: Denies: headache(s), numbness in extremities, weakness in extremities, sensory changes, difficulty walking, dizziness or Slurred speech present Psych: Denies: anxiety, depression, suicidal ideation or homicidal ideation Endo: Denies: polyuria, polydipsia or tired all the time Jason/Lymph: Denies: easy bruising or easy bleeding Medications/Allergies Home Medications Medication Instructions Recorded Confirmed Last Taken Type diclofenac sodium 75 mg 75 mg PO Q12H PRN Pain 01/12/22 01/12/22 01/11/22 22:20 History tablet,delayed release divalproex 250 mg tablet,delayed 250 mg PO 2XD 01/12/22 01/12/22 Unknown History release fluticasone propionate 50 2 spray intranasal DAILY 01/12/22 01/12/22 Unknown History mcg/actuation nasal spray,suspension venlafaxine 150 mg 150 mg PO DAILY 01/12/22 01/12/22 Unknown History capsule,extended release 24 hr Allergies Allergy/AdvReac Type Severity Reaction Status Date / Time meperidine [From Demerol] Allergy Unknown unknown Verified 02/22/20 15:25 Penicillins Allergy Unknown unknown Verified 02/22/20 15:25 Current Medications Generic Name Dose Route Start Last Admin Trade Name Freq PRN Reason Stop Dose Admin Aspirin 81 mg 01/12/22 09:00 01/12/22 08:44 Aspirin 81 Mg Ec Tablet PO 81 mg DAILY DAVID Administration Clopidogrel Bisulfate 75 mg 01/12/22 09:00 01/12/22 08:44 Clopidogrel 75 Mg Tablet PO 75 mg DAILY DAVID Administration Lisinopril 10 mg 01/12/22 09:00 01/12/22 08:45 Lisinopril 10 Mg Tablet PO 10 mg DAILY DAVID Administration Pantoprazole Sodium 40 mg 01/12/22 09:00 01/12/22 08:[address] 40 Mg Tablet PO 40 mg DAILY DAVID Administration PFSH Acute PFSH: Medical History Atypical chest pain Dandy-Walker syndrome variant Dizziness Elevated blood pressure reading LVH (left ventricular hypertrophy) Family History Other CAD (coronary artery disease) Cancer Dementia Diabetes Hyperlipidemia Hypertension Psychiatric illness Stroke Denies family history of Clotting disorder Chronic kidney disease (CKD) Anesthesia complication Bleeding disorder Family history of premature coronary artery disease Social History Smoking and tobacco status: never smoked Alcohol intake: never Vitals/I&O/Wt Last Vital Signs Temp 97.4 F L 01/12/22 08:00 Pulse 70 01/12/22 08:00 Resp 22 H 01/12/22 08:00 BP 138/88 01/12/22 08:00 Pulse Ox 96 01/12/22 08:00 O2 Del Method 01/12/22 08:00 Weight last 48 hrs Weight 202 lb 5 oz Weight 199 lb 6.4 oz Physical Exam Narrative: GENERAL: Averagely built and averagely nourished in no acute distress HEENT: Extraocular movement intact. Pupils equal round reactive to light. No pallor or icterus. NECK: central trachea, No JVD, No carotid bruit. CARDIOVASCULAR SYSTEM: S1-S2 regular. No murmur rubs or gallops. RESPIRATORY SYSTEM: Chest clear to auscultation. No wheezes rhonchi or rubs heard. No use of accessory muscles. ABDOMEN: Soft, nontender and nondistended. Normal bowel sounds present. No hepatosplenomegaly appreciated. EXTREMITIES: No cyanosis or edema. No signs of chronic venous insufficiency. 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 No focal neurological deficits. Cranial nerves intact. SKIN: Normal turgor and temperature. No breakdown, rash or nail changes noted. PSYCH: Normal insight and judgment. Data : 01/12/22 01:08 01/12/22 01:08 Other data: TTE (11/15/2017) CONCLUSIONS 1. Normal left ventricular cavity size. Normal left ventricular systolic function. Left ventricular ejection fraction is estimated at 60%. No diagnostic regional wall motion abnormalities. Normal diastolic function. 2. Normal right ventricular size and systolic function. 3.There is no significant valvular abnormality. 4. No pericardial effusion. 5. When compared to prior echocardiogram dated 12/14/2015, may not have been any significant change. ETT (01/13/2016) CONCLUSION: 1. Exercise capacity poor. 2. Heart rate response was tachycardic. 3. Blood pressure response was appropriate. 4. Symptoms not suggestive of ischemia. 5. Electrocardiogram portion of the stress test was not suggestive of ischemia. 6. Please note that due to poor exercises capacity and under achievement of METs specificity and sensitivity of the EKG portion of the stress test will be low A&P Assessment and plan (1) Atypical chest pain: No viral prodrome -Chest pain sharp stabbing 10/10 lasted for one hour woke him up from sleep -EKG with short RI and non specific ST elevated. No RI segment depression noted -no pericardial effusion on TTE, CRP not elevated. Patient is at low risk of CAD. However, coronary vasospasm, myocardial bridging and coronary anomalies are possible differentials. -I will proceed with C (cardiac CTA unavailable). Risks and benefits were discussed with the patients. Possible complications including risk of heart attack stroke and , coronary perforation, arrhythmia, cardiac tamponade in urgent CABG were discussed with the patient as well. Plan is to proceed for the procedure at the earliest. (2) Non-ST elevation MA (NSTEMI): (3) Elevated blood pressure reading: No prior diagnosis of HTN Coding Level of Care Code Acute Boat Garnisher for g Fwd Diagnoses Atypical chest pain R07.89 Non-ST elevation MA (NSTEMI) I21.4 Elevated blood pressure reading R03.0
[2022-01-12 09:13] LABS: Chol HDL Ratio 4.79 mg/dL (1.0-5.00); Cholesterol 158 mg/dL (0-200); HDL Cholesterol 33 mg/dL (60-100); LDL Cholesterol Calculated 107 mg/dL (50-129); LDL HDL Ratio 3.24 RATIO (0.00-3.22); Triglycerides 88 mg/dL (0-150)
[2022-01-12 09:23] LABS: Estmated Average Glucose 94; Hemoglobin A1C 4.9 % (4.0-6.0)
--- NOTE | 2022-01-12 10:21 | PC.CHAP ---
Pastoral Care Encounter/Spiritual Assessment Type of Contact [] Declined machine heel builder visit [] Patient/Family/Request visit [] Outpatient visit [] Follow-up visit [] Physician referral [] Code/Alert [x] Routine visit [] Staff referral [] Actively dying [] Patient sleeping [] Family support [] [] Out of room [] Palliative care [] [x] Receiving care in room [] Pre-surgical visit [] Trauma [] Long length of stay [] ICU visit [] Other: Relational/Emotional Strength [] Patient feels connected with others/family/visitors/staff [] Distress [] Loneliness/isolation [] Abandonment Spirituality of Patient [x] Person of Isabel [x] Attends Jain of their Isabel [x] Believes in Prayer [x] Reads Bible or Judaism materials [] There are Spiritual issues to be addressed Roaster Helper Interventions [x] Prayer [] Active listening [] Non-anxious presence [] Spiritual/emotional support [] Crisis/trauma care [] Spiritual counseling [] Bereavement support [] Provided bereavement packet [] Provided Bible/devotional materials [] Provided toy/stuffed animal, coloring book to patient or family member [] Provided Communion [] Anointing/[place] [] Salvation [x] Completed spiritual assessment [] Other: Impact on Illness or Injury [] Angry [] Fearful [] Anxious [] Often cries [] Exhaustion [] Unable to work [] Unable to attend yazdanism [] Unable to walk/stand [] Unable to read [] Unable to drive [] Unable to eat/drink [] Unable to sleep [] Unable to be with family [] Patient intubated [] Other: Summary Time spent with patient 5 min
--- NOTE | 2022-01-12 10:43 | PM.MISC ---
Miscellaneous Note Note: Did speak with Dr. Marie regarding patient's troponin I have started him on NSTEMI protocol Am waiting on echo report No active chest pain Patient is stating that in case of any event his sister or aunt should be notified History she works for the hospital Patient is awake and alert Euvolemic No skin rash EKG showing short VT interval without ischemic or infarctive changes Abdomen soft Bilateral breath sounds Very pleasant during my evaluation No active chest pain Assessment and plan Start NSTEMI protocol I have given him therapeutic Lovenox start aspirin Plavix Admitting physician has started JELANI vasculitis work-up Patient is denying fever, recent upper restaurant infection No recent traveling He is not sure about family history We will follow-up with cardiology recommendations No recent viral illness as per the patient He works full-time I will start him on cardiac diet once the echo has been finalized
[2022-01-12 11:15] LABS: Creatine Phosphokinase 192 U/L (39-308); Thyroid Stimulating Hormone 0.93 uIU/mL (0.27-4.20)
--- NOTE | 2022-01-12 11:47 | XACV_ITS ---
Exam Room: [facility] Ht: 160 cm Wt: 92 kg BSA: 2.06 m2 Gender: Male : 1995 Any Known Allergies: Other Exam Priority: Routine Procedure(s): Procedure Description: Diagnostic procedure Procedure Description: Left Heart Catheterization Procedure Description: Coronary Angiography Diagnostic Cath Status: Urgent Diagnostic Findings * Coronary angiography shows left dominance. 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 * No disease noted in the Left Anterior Descending, small nondominant right, or Circumflex coronary arteries. Conclusions 1. 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 2. No disease noted in the Left Anterior Descending, small nondominant right, or Circumflex coronary arteries. Recommendations * Continue current medical management and risk factor modification. Pressures Phase:Rest AO : 144 / 91 ( 109 ) @ 1:42:00 PM 124 / 95 ( 110 ) @ 2:18:00 PM 95 / 35 ( 64 ) @ 2:21:00 PM 160 / 97 ( 123 ) @ 2:26:00 PM 164 / 99 ( 124 ) @ 2:26:00 PM LV : 174 / 0 / 30 @ 2:26:00 PM 169 / -4 / 31 @ 2:26:00 PM Hemodynamic Findings LVEDP is 30 mmHg. Valves Phase:DefaultPhase AV : 9.0 @ 1:38:35 PM AV Mean Gradient: 12.0 @ 1:38:35 PM Clinical Evaluation EBL: 5mL-10mL Procedural Details Procedure Consent Obtained. Pre-Procedure Time Out. Identified patient by full name and date of as verbalized by the patient/guarantor. Does the consent match the physician's order: Yes. Accurate & Complete Informed Consent: Yes. Inpatient/Outpatient History & Physical on Chart: Yes. If H&P is completed, is and addenduem needed: No. Visualize and Verify Site with Patient/Guarantor: N/A. Relevant Radiology Images available: Yes. The risks, benefits, and alternatives of sedation and/or procedure were discussed by physician. The patient agrees to continue. Procedure started. [facility] Clinical Fraility Score: 3: Managing Well. Manager Of Health Indications: ACS > 24 hours. Chest Pain Symptom Assessment: Typical Angina Symptoms. Cardiovascular Instability: No. Correct patient, site and procedure confirmed by cath team. Current diagnosis: NSTEMI. PERRLA. Strong, equal hand trademark affixer bilaterally. Lungs clear x 5 lobes. A 20 gauge IV was started in the left anticubital using aseptic technique. IV Fluids: 0.9% NaCl at KVO. 100 mL infused prior to field laborer. Pre Procedural Pulses: bilateral dorsalis pedis was 1+. Pre Procedural Pulses: bilateral posterior tibial was 1+. Pre Procedural Pulses: bilateral radial was 1+. Oxygen started at 2liters/min via nasal canula. right groin was prepped with chloroprep then draped in the usual sterile fashion. right radial was prepped with chloroprep then draped in the usual sterile fashion. Physician notified. Baseline sample Acquired. HR: 105 BPM. Patient's family unavailable. Equipment: 6F - Radial. Cardiac Cath Pack. ACIST Manifold Kit Model BT 2000. Heparinized Saline (2 units/mL), 1000 mL bag. Physician arrived. Physician scrubbed in. Immediate Pre-Procedure Time Out. Correct Patient: Yes; Correct Procedure: Yes; Correct Site: Yes; Correct Patient Position: Yes; Correct Supplies: Yes; Dried Flammable Prep: Yes; Blood Products Available: N/A;. Lidocaine 1% infiltrated to the right radial. Arterial access obtained. A 5 tajik TIG catheter in over the exchange wire. Multiple views taken of right coronary artery. Catheter redirected to the LCA. TIG unable to cannulate LCA, out over the exchange wire. A 5 tajik JL4 catheter in over the exchange wire. Exchange wire in to reposition the JL4 catheter. Exchange wire out. Exchange wire in to reposition the JL4 catheter. A 5 tajik JL3.5 catheter in over the exchange wire. Catheter removed over the exchange wire. Catheter removed over the exchange wire. A 5 tajik Nick catheter in over the exchange wire. Exchange wire in to reposition the Nick catheter. Exchange wire out. Catheter redirected to the LV. EDP Sample taken: LV 174/0,30; HR: 101 BPM; SpO2: 98%. Pullback taken: LV 169/-5,31; AO 160/97(123); Mean: 12mmHg, Peak to Peak: 9mmHg, SEP: 24sec/min; HR: 103 BPM; SpO2: 98%. Catheter removed over the exchange wire. Vital chart was stopped. Dr. Roman scrubbed out. Patient's family updated by Dr. Roman. A TR Band was successful obtaining hemostatsis at the Right Radial artery insertion site. TR band placed. Hemostasis obtained. Post Procedure: Pulses reassessed and unchanged. PERRLA. Strong, equal hand trademark affixer bilaterally. No VTE prophylaxis required. Medication's Wasted: Lidocaine 1% = 3 mL. Medication's Wasted: Nitro = 49.4 mg. Medication's Wasted: Heparin = 1000 units. Medication's Wasted: Versed = 1 mg. Total IV fluids: 77 mL. Post-op diagnosis: Normal Coronaries. Complications: none. Estimated blood loss: 5mL-10mL. Responsiveness - Normal response to verbal stimuli; alert and oriented, PERRLA. Airway - Unaffected, no intervention required; spontaneous ventilation. Circulation: W/N/L, pulses unchanged. Nausea/Vomiting: No. Procedure completed. Patient transferred by bed to ICU. Access Site Site: Right Radial artery Sheath Size: 6 Fr Hemostasis Method: TR Band Hemostasis Success: Successful Procedure Medications Start: 12:31 PM Stop: 12:31 PM Medication: Versed Amount: 1 mg Route: I.V. Start: 12:31 PM Stop: 12:31 PM Medication: Fentanyl Amount: 50 mcg Route: I.V. Start: 12:36 PM Stop: 12:36 PM Medication: Versed Amount: 1 mg Route: I.V. Start: 12:39 PM Stop: 12:39 PM Medication: Nitrogylcerin Amount: 200 mcg Route: I.A. Start: 12:40 PM Stop: 12:40 PM Medication: Fentanyl Amount: 25 mcg Route: I.V. Start: 12:46 PM Stop: 12:46 PM Medication: Nitrogylcerin Amount: 200 mcg Route: I.A. Start: 12:39 PM Stop: 12:39 PM Medication: Heparin Amount: 5000 units Route: I.V. Start: 12:55 PM Stop: 12:55 PM Medication: Nitrogylcerin Amount: 200 mcg Route: I.A. Start: 1:04 PM Stop: 1:04 PM Medication: Versed Amount: 1 mg Route: I.V. Start: 1:07 PM Stop: 1:07 PM Medication: Fentanyl Amount: 25 mcg Route: I.V. Start: 1:26 PM Stop: 1:26 PM Medication: Nitrogylcerin Amount: 200 mcg Route: I.A. Start: 1:34 PM Stop: 1:34 PM Medication: Nitrogylcerin Amount: 200 mcg Route: I.A. Start: 1:35 PM Stop: 1:35 PM Medication: Nitrogylcerin Amount: 200 mcg Route: I.A. I, the attending physician, have reviewed and verified all procedure medications. Yes, all medications given per verbal order History/Risk Factors Hypertension: Yes Dyslipidemia: No Peripheral Arterial Disease (PAD): No Myocardial Infarction (HI): No Obesity: No Renal Disease: No Tobacco Use: Never Prior Interventions PCI: No CABG: No Valve Surgery: No Report Signatures Finalized by Fouzia Roman MD on 01/15/2022 04:39 PM
[2022-01-12 11:57] LABS: Amphetamines Screen Urine Negative (Negative); Barbiturates Screen Urine Negative (Negative); Benzodiazepines Screen Urine Negative (Negative); Cocaine Screen Urine Negative (Negative); Opiate Screen Urine Negative (Negative); PCP Screen Urine Negative (Negative); THC Screen Urine Negative (Negative)
[2022-01-12] MEDS: diphenhydrAMINE 50 mg Capsule PO (12:08)
[2022-01-12] MEDS: sodium chloride 0.9% 1,000 ML 50 ML IV (12:09)
--- NOTE | 2022-01-12 12:27 | W.PM.OPSUD ---
Surgery/Procedure H&P Update DATE OF PROCEDURE: January 12, 2022 DATE H&P PERFORMED: 01/12/22 H&P UPDATE INFORMATION: I have reviewed H&P completed within last 30 days, I have examined patient prior to procedure and No changes to prior documentation PREOP DIAGNOSIS: NSTEMI PRIMARY INDICATION FOR PROCEDURE: NSTEMI PATIENT REASSESSED PRIOR TO SEDATION, WITH NO CHANGE NOTED: Yes PHYSICAL EXAM: alert, oriented x 3, clear to auscultation bilaterally and regular rate & rhythm AIRWAY EVAL/ANESTHESIA PLAN: normal airway, ASA II, Monitored Anesthesia, Local Anesthesia and Risks, benefits & alternatives of sedation and/or procedure discussed
--- NOTE | 2022-01-12 14:04 | PC.NURSE ---
Patient returned to the floor at 1350 with a TR band on his right wrist. No hematoma noted on arrival. 3 of versed, 100 of fentanyl, and 5000 of heparin given in laborer vegetable farm. No interventions performed. Patient reporting no pain. TR band filled with 15cc of air at time of arrival. Hand of received from laborer vegetable farm team. Patient instructed not to push himself up in bed or use r hand for pushing or pulling. Patient is eating lunch. Call light within reach. Dad with patient in room.
[2022-01-12] MEDS: sodium chloride 0.9% 1,000 ML 100 ML IV (15:35)
--- NOTE | 2022-01-12 17:06 | ECG_ITS ---
[facility] Test Date: 2022-01-12 Pat Name: Jose Juan Vázquez Department: Room: 276 Gender: Male Nurse Anesthetist: : 1995 Requested By: Fouzia Roman Order Number: [id number] Ricardo MD: Fouzia Roman M.D. Measurements Intervals [place] Rate: 82 P: 24 VT: 120 QRS: -31 QRSD: 78 T: 61 QT: 357 QTc: 419 Interpretive Statements SINUS RHYTHM LEFT AXIS DEVIATION [QRS AXIS < -30] MODERATE VOLTAGE CRITERIA FOR LVH, CONSIDER NORMAL VARIANT Compared to ECG 01/12/2022 06:15:46 Left-axis deviation now present Short VT interval no longer present Electronically Signed On 01-15-2022 23:06:33 CDT by Fouzia Roman M.D. [id number]
--- NOTE | 2022-01-12 17:57 | PC.NURSE ---
TR band removed. 2x2 and tegaderm placed. No bleeding and no hematoma noted. Patient reminded to not use hand to push himself up in bed or lift anything over 5lb.
[2022-01-12 18:13] LABS: Rapid Strep A Test Negative (Negative)
[2022-01-12 20:52] LABS: Adenovirus Not Detected (NOT DETECT); Chlamydia Pneumoniae Not Detected (NOT DETECT); Coronavirus 229E,HKU1,NL63,OC4 Not Detected (NOT DETECT); Human Metapneumovirus Not Detected (NOT DETECT); Human Rhinovirus/Enterovirus Not Detected (NOT DETECT); Influenza A Not Detected (NOT DETECT); Influenza A H1 Not Detected (NOT DETECT); Influenza A H1-2009 Not Detected (NOT DETECT); Influenza A H3 Not Detected (NOT DETECT); Influenza B Not Detected (NOT DETECT); Mycoplasma Pneumoniae Not Detected (NOT DETECT); Parainfluenza Virus Type 1 Not Detected (NOT DETECT); Parainfluenza Virus Type 2 Not Detected (NOT DETECT); Parainfluenza Virus Type 3 Not Detected (NOT DETECT); Parainfluenza Virus Type 4 Not Detected (NOT DETECT); Respiratory Syncytial Virus A Not Detected (NOT DETECT); Respiratory Syncytial Virus B Not Detected (NOT DETECT); SARS-COV-2 Not Detected (NOT DETECT)
[2022-01-12] MEDS: atorvastatin 40 mg Tablet PO (20:54)
--- NOTE | 2022-01-12 21:14 | PC.NURSE ---
called nurse to follow up on patient. Nurse spoke with regarding the patient taking seizure medication at home but is not ordered here. said she will order it.
[2022-01-12] MEDS: divalproex DR 250 mg Tablet PO (21:30)
[2022-01-13] VITALS (8 sets, daily range): BP systolic 116–136; BP diastolic 58–90; PULSE 70–84; RESP 12–22; TEMP 36.5–36.9; O2SAT 94–95
[2022-01-13 01:36] LABS: Basophils % 0.3 %; Eosinophils # 0.2 10^3/uL (0.0-0.8); Eosinophils % 2.1 %; Hematocrit 44.1 % (42.0-52.0); Lymphocytes # 2.6 10^3/uL (0.8-4.8); Lymphocytes % 33.1 %; Mean Corpuscular Hemoglobin 31.1 pg (28.0-34.0); Mean Corpuscular Volume 91.5 fl (80-94); Mean Platelet Volume 9.7 fL (7.4-10.4); Monocytes # 0.7 10^3/uL (0.2-0.9); Monocytes % 9.2 %; Neutrophils # 4.21 10^3/uL (1.8-7.7); Neutrophils % 54.4 %; Nucleated Red Blood Cells % 0 %; Platelet Count 257 10^3/cmm (130-400); Red Blood Count 4.82 10^6/uL (4.1-5.3); Red Cell Distribution Width 11.9 % (12.1-15.1); White Blood Count 7.7 10^3/uL (4.0-10.0)
[2022-01-13 02:06] LABS: Alanine Aminotransferase 27 U/L (0-41); Albumin Level 3.7 g/dL (3.5-5.2); Alkaline Phosphatase 93 U/L (40-130); Aspartate Amino Transferase 14 U/L (0-40); Blood Urea Nitrogen 14 mg/dL (6-20); Carbon Dioxide 29 mmol/L (22-29); Chloride 104 mmol/L (98-107); Globulin 2.4 g/dL (1.3-4.6); Glomerular Filtration Rate 89.6 mL/min (90-130); Glucose 101 mg/dL (65-115); Osmolality Calculated 293 mOsm/kg (285-295); Sodium 141 mmol/L (136-145); Total Bilirubin 0.3 mg/dL (0.15-1.2); Total Protein 6.1 g/dL (6.6-8.7)
--- NOTE | 2022-01-13 03:35 | PC.NURSE ---
machine operator packaging alarmed for HR up to 179, nurse went in to check patient who was asleep at the time. The patient denied any chest pain or palpitations. Apical pulse was 71. Telemetry printout showed patient going from SR, to SR with a BBB, and back to SR but otherwise controlled rate. Telemetry strips posted in the patients chart.
--- NOTE | 2022-01-13 04:48 | PC.NURSE ---
Made aware of patients telemetry changes, from SR, to SR with BBB, and back to SR. No new orders.
--- NOTE | 2022-01-13 08:16 | P.PN_ITS ---
Subjective Subjective: Patient underwent LHC yesterday via right radial access. No acute event overnight Medications: Reviewed: Yes Vitals/I&O/Wt Last Vital Signs Temp 98.5 F 01/13/22 07:55 Pulse 84 01/13/22 07:55 Resp 20 H 01/13/22 07:55 BP 132/80 01/13/22 07:55 Pulse Ox 95 01/13/22 07:55 O2 Del Method 01/13/22 06:00 01/12/22 01/13/22 01/13/22 22:59 06:59 14:59 Intake Total 635.833 / 1115.833 0 / 1115.833 Output Total 400 / 400 0 / 400 Balance 235.833 / 715.833 0 / 715.833 Weight last 48 hrs Weight 202 lb 5 oz Weight 199 lb 6.4 oz Physical Exam Narrative: GENERAL: Averagely built and averagely nourished in no acute distress HEENT: Extraocular movement intact. Pupils equal round reactive to light. No pallor or icterus. NECK: central trachea, No JVD, No carotid bruit. CARDIOVASCULAR SYSTEM: S1-S2 regular. No murmur rubs or gallops. RESPIRATORY SYSTEM: Chest clear to auscultation. No wheezes rhonchi or rubs heard. No use of accessory muscles. ABDOMEN: Soft, nontender and nondistended. Normal bowel sounds present. No hepatosplenomegaly appreciated. EXTREMITIES: No cyanosis or edema. No signs of chronic venous insufficiency. R wrist with no bruising or hematoma MEDICAL LAB TECHNICIAN: Patient is alert oriented ?3. No focal neurological deficits. Cranial nerves intact. SKIN: Normal turgor and temperature. No breakdown, rash or nail changes noted. PSYCH: Normal insight and judgment. Data : 01/13/22 01:25 01/13/22 01:25 A&P Assessment and plan (1) Atypical chest pain: No viral prodrome -Chest pain sharp stabbing 10/10 lasted for one hour woke him up from sleep -EKG with short AR and non specific ST elevated. No AR segment depression noted -no pericardial effusion on TTE, CRP not elevated. -Normal coronaries with separate ostial for LAD and LCx. Marked radial spasm during the study. -Patient has remained CP free. -will start on ISMN on discharge. Plan to add dihydropyridine CCB based on response (2) Non-ST elevation PA (NSTEMI): [place] -possibly d/t coronary vasospam (3) Elevated blood pressure reading: No prior diagnosis of HTN Plan Short AR interval on EKG: No preexcitation noted. occasional fluttering; no sustained episodes. Attestations Medical Necessity Statement*: stable to be discahrged. Time Spent in Patient Care: 16 - 35 minutes Coding Level of Care Code Acute Telegraph Office Manager for [facility] Fwd Diagnoses Atypical chest pain R07.89 Non-ST elevation PA (NSTEMI) I21.4 Elevated blood pressure reading R03.0
--- NOTE | 2022-01-13 08:22 | PM.DCS ---
Discharge Providers Date of Admission: 01/12/22 03:59 Date of Discharge: January 13, 2022 Attending Provider at Admission: Winsome Vergara MD Attending Provider at Discharge: Ben Lin MD Primary Care Provider: Bro Mahoney MD Diagnoses at Discharge Discharge Diagnosis (1) Atypical chest pain: Status: Acute (2) Non-ST elevation NJ (NSTEMI): Status: Acute (3) Elevated blood pressure reading: Status: Acute Reason for Visit Reason for Visit: chest discomfort, shaking Hospital Course Hospital Course 27-year male who presented to hospital with chief complaint of chest pain that woke him up from sleep, his troponins were trending up he was treated as NSTEMI, echo did not show wall motion abnormality, Dr. Jackson was consulted who recommended left heart coronary angiogram it did show vasospastic pattern during the procedure, she recommended Imdur, will avoid beta-leida or calcium leida for now because of short RI interval. D-dimer unremarkable, rapid strep negative, COVID-negative. No recent viral illness. Patient is being discharged with stable hemodynamics Physical Exam Narrative: S1, S2 Awake and alert Currently on room air Chest pain-free Abdomen soft Euvolemic Discharge Data Studies Completed and Pending Completed Studies During Hospitalization Category Date Time Status XR chest 1V portable [id number] Stat Exams 01/11/22 23:45 Completed CV. echo complete* [id number] Routine Ultrasound 01/12/22 07:48 Completed Pending at discharge Category Date Time Status LEARNING AND DEVELOPMENT SPECIALIST request for service Routine Exams 01/12/22 11:47 Taken JELANI Profile Rheumatology Routine Lab 01/12/22 11:23 Received Streptococcus Culture Group A Routine Lab 01/12/22 14:52 Received Radiology Impressions Chest X-Ray 01/11/22 23:45 IMPRESSION: No acute findings. Laboratory Results WBC 7.7 10^3/uL (4.0-10.0) 01/13/22 01:25 RBC 4.82 10^6/uL (4.1-5.3) 01/13/22 01:25 Hgb 15.0 g/dL (11.7-16.6) 01/13/22 01:25 Hct 44.1 % (42.0-52.0) 01/13/22 01:25 MCV 91.5 fl (80-94) 01/13/22 01:25 MCH 31.1 pg (28.0-34.0) 01/13/22 01:25 MCHC 34.0 g/dL (30.0-36.0) 01/13/22 01:25 RDW 11.9 % (12.1-15.1) L 01/13/22 01:25 Plt Count 257 10^3/cmm (130-400) 01/13/22 01:25 MPV 9.7 fL (7.4-10.4) 01/13/22 01:25 Neut % (Auto) 54.4 % 01/13/22 01:25 Lymph % (Auto) 33.1 % 01/13/22 01:25 Freestone % (Auto) 9.2 % 01/13/22 01:25 Eos % (Auto) 2.1 % 01/13/22 01:25 Baso % (Auto) 0.3 % 01/13/22 01:25 Neut # (Auto) 4.21 10^3/uL (1.8-7.7) 01/13/22 01:25 Lymph # (Auto) 2.6 10^3/uL (0.8-4.8) 01/13/22 01:25 [place] # (Auto) 0.7 10^3/uL (0.2-0.9) 01/13/22 01:25 Eos # (Auto) 0.2 10^3/uL (0.0-0.8) 01/13/22 01:25 Baso # (Auto) 0.0 10^3/uL (0.0-0.1) 01/13/22 01:25 Nucleated RBC % (auto) 0 % 01/13/22 01:25 Nucleated RBCs # 0.0 /100WBC 01/13/22 01:25 D-Dimer <= 0.27 ug/mIFEU (0-0.59) 01/12/22 01:08 Sodium 141 mmol/L (136-145) 01/13/22 01:25 Potassium 4.0 mmol/L (3.5-5.1) 01/13/22 01:25 Chloride 104 mmol/L (98-107) 01/13/22 01:25 Carbon Dioxide 29 mmol/L (22-29) 01/13/22 01:25 Anion Gap 12.0 (5-19) 01/13/22 01:25 BUN 14 mg/dL (6-20) 01/13/22 01:25 Creatinine 1.0 mg/dL (0.7-1.2) 01/13/22 01:25 GFR Calculation 89.6 mL/min (90-130) L 01/13/22 01:25 Glucose 101 mg/dL (65-115) 01/13/22 01:25 Estimat Average Glucose 94 01/12/22 01:08 Hemoglobin A1c 4.9 % (4.0-6.0) 01/12/22 01:08 Calculated Osmolality 293 mOsm/kg (285-295) 01/13/22 01:25 Calcium 9.0 mg/dL (8.5-10.5) 01/13/22 01:25 Total Bilirubin 0.3 mg/dL (0.15-1.2) 01/13/22 01:25 AST 14 U/L (0-40) 01/13/22 01:25 ALT 27 U/L (0-41) 01/13/22 01:25 Alkaline Phosphatase 93 U/L (40-130) 01/13/22 01:25 Creatine Kinase 192 U/L (39-308) 01/12/22 07:00 Troponin T Baseline 41 ng/L (0-15) H 01/12/22 01:08 Troponin T 120 Minute 73.42 ng/L (0-15) H 01/12/22 02:35 Delta Troponin T 32.42 ABS# (0-10) H* 01/12/22 02:35 Troponin T Hi Sens 6Hr 84.43 ng/L (0-15) H 01/12/22 07:20 Troponin T Hi Sens 6Hr Delta 43.43 ng/L (0-12) H* 01/12/22 07:20 C-Reactive Protein 3.0 mg/L (0.0-4.9) 01/12/22 01:08 Total Protein 6.1 g/dL (6.6-8.7) L 01/13/22 01:25 Albumin 3.7 g/dL (3.5-5.2) 01/13/22 01:25 Globulin 2.4 g/dL (1.3-4.6) 01/13/22 01:25 Triglycerides 88 mg/dL (0-150) 01/12/22 01:08 Cholesterol 158 mg/dL (0-200) 01/12/22 01:08 LDL Cholesterol, Calc 107 mg/dL (50-129) 01/12/22 01:08 HDL Cholesterol 33 mg/dL (60-100) L 01/12/22 01:08 LDL/HDL Ratio 3.24 RATIO (0.00-3.22) H 01/12/22 01:08 Cholesterol/HDL Ratio 4.79 mg/dL (1.0-5.00) 01/12/22 01:08 TSH 0.93 uIU/mL (0.27-4.20) 01/12/22 07:00 Urine Opiates Screen Negative ng/mL (Negative) 01/12/22 11:32 Ur Barbiturates Screen Negative ng/mL (Negative) 01/12/22 11:32 Ur Phencyclidine Scrn Negative ng/mL (Negative) 01/12/22 11:32 Ur Amphetamines Screen Negative ng/mL (Negative) 01/12/22 11:32 U Benzodiazepines Scrn Negative ng/mL (Negative) 01/12/22 11:32 Urine Cocaine Screen Negative ng/mL (Negative) 01/12/22 11:32 U Marijuana (THC) Screen Negative ng/mL (Negative) 01/12/22 11:32 Coronavirus 229E (PCR) Not detected (NOT DETECT) 01/12/22 14:51 SARS-CoV-2 (PCR) Not detected (NOT DETECT) 01/12/22 14:51 Group A Strep Rapid Negative (Negative) 01/12/22 14:52 Vitals Last Vital Signs Temp 98.5 F 01/13/22 07:55 Pulse 84 01/13/22 07:55 Resp 20 H 01/13/22 07:55 BP 132/80 01/13/22 07:55 Pulse Ox 95 01/13/22 07:55 O2 Del Method 01/13/22 06:00 Discharge Plan Discharge Patient Disposition: Home Condition: Stable Prescriptions: New isosorbide mononitrate 10 mg tablet 5 mg PO BID Qty: 60 0RF Rx Instructions: give doses 7 hrs apart Continued divalproex 250 mg tablet,delayed release (DR/EC) 250 mg PO 2XD venlafaxine 150 mg capsule,extended release 24hr 150 mg PO DAILY fluticasone propionate 50 mcg/actuation spray,suspension 2 spray INTRANASAL DAILY Discontinued diclofenac sodium 75 mg tablet,delayed release (DR/EC) 75 mg PO Q12H PRN (Reason: Pain) Discharge Orders: Discharge Order (Routine); Ordered 01/13/22 Ordered By: Ben Lin Referrals: Bro Mahoney MD [Primary Care Provider] - 7-10 days (please call and make a follow up appointment for one week ) Fouzia Roman MD [Physician] - 1 month (please call and make a follow up appointment for one month) Discharge Diet: Cardiac Discharge Activity: Increase activity as tolerated Patient Instructions: Heart Attack (DC), Opioid Safety Discharge Attestations Time Spent in Discharge Care*: less than 30 min Quality Metrics Clinical Quality Measures [ No reported AMI, CVA or VTE this stay] Coding Level of Care Code Acute Chg FW DC note Diagnoses Atypical chest pain R07.89 Non-ST elevation NJ (NSTEMI) I21.4 Elevated blood pressure reading R03.0
[2022-01-13] MEDS: pantoprazole DR 40 mg Tablet PO (08:27)
[2022-01-13] MEDS: aspirin 81 mg EC Tablet PO (08:27)
[2022-01-13] MEDS: venlafaxine ER (24HR) 150 mg Capsule PO (08:27)
[2022-01-13] MEDS: isosorbide mononitrate ER 30 mg Tablet PO (08:27)
[2022-01-13] MEDS: divalproex DR 250 mg Tablet PO (08:27)
--- NOTE | 2022-01-13 10:42 | PM.MISC ---
Miscellaneous Note Purpose of Documentation: work excuse note Note: Mr Vázquez 27 Yo male was admitted due to severe chest pain episode. He has undergone coronary angiogram that showed vasospastic vessels and would need rest Until Dec,. He should refrain from heavy work load in next 1-2 weeks. If he is able to carry daily activities without any symptoms then he can resume his regular work related duties
--- NOTE | 2022-01-13 11:35 | PC.NURSE ---
Patient given discharge instructions and education. Verbalized understanding. Medication sent to pharmacy. IV removed and intact. Wheeled to front office with sister. Patient instructed not to lift anything over 5 pounds in right wrist for the next week. Work note given.
[2022-01-15 10:38] LABS: CENTROMERE B ANTIBODY <1.0 NEG AI (<1.0 NEG); JO-1 ANTIBODY <1.0 NEG AI (<1.0 NEG); RNP ANTIBODY <1.0 NEG AI (<1.0 NEG); SCL-70 ANTIBODY <1.0 NEG AI (<1.0 NEG); SJOGREN'S ANTIBODY (SS-A) <1.0 NEG AI (<1.0 NEG); SM ANTIBODY <1.0 NEG AI (<1.0 NEG); SS-B <1.0 NEG AI (<1.0 NEG)
[2022-01-15 12:38] LABS: COMPLEMENT COMPONENT C3C 138 mg/dL (82-185); COMPLEMENT COMPONENT C4C 20 mg/dL (15-53)
[2022-01-15 14:47] LABS: ANA SCREEN, IFA NEGATIVE (NEGATIVE)
[2022-01-15 16:17] LABS: THYROID PEROXIDASE ANTIBODIES <1 IU/mL (<9)
[2022-01-15 16:43] LABS: COMPLEMENT, TOTAL (CH50) 54 U/mL (31-60)
[2022-01-16 16:33] LABS: DNA AB (DS) CRITHIDIA,IFA NEGATIVE (NEGATIVE)
== END 2022-01-13 10:05 | disposition home or self-care (01) ==
LOC: ER 01-12 03:21 → MEDSURG 01-12 03:41
PROVIDERS: Internal Medicine Cardiovascular Disease; Admitting Provider Student in an Organized Health Care Education/Training Program; Emergency Provider Emergency Medicine; PCP Family Medicine; Visit Provider Internal Medicine
DX: I21.4 Non-ST elevation (NSTEMI) myocardial infarction (principal); R03.0 Elevated blood-pressure reading, without diagnosis of hypertension; I10 Essential (primary) hypertension; R73.03 Prediabetes
CPT/HCPCS: 36415; 71045; 80053; 80061; 80306; 82550; 83036; 84443; 84484; 85025; 85378; 86140; 86160; 86162; 86235; 86255; 86376; 87081; 87635; 87880; 93005; 93306; 93458; 96360; 96372; 99152; 99153; 99285; C1769; C1887; C1894; G0378; J1644; J1650; J2250; J3010; J3490; J7030; Q0163; Q9967

== ENCOUNTER → 2022-01-18 08:33 | Outpatient (BNVA) | payer MEDICARE, MEDICAID, SELFPAY | PROVIDERS: PCP Family Medicine; Visit Provider Nurse Practitioner Family | DX: I20.1 Angina pectoris with documented spasm (principal) | CPT/HCPCS: 36415; 80048; 99213; 99214 ==

== ENCOUNTER → 2022-05-22 10:28 | Outpatient (BNVA) | payer MEDICARE, MEDICAID, SELFPAY | PROVIDERS: PCP Family Medicine; Visit Provider Internal Medicine Cardiovascular Disease | DX: I11.9 Hypertensive heart disease without heart failure (principal); I20.1 Angina pectoris with documented spasm; Q03.1 Atresia of foramina of Magendie and Luschka; I25.2 Old myocardial infarction | CPT/HCPCS: 99214 ==

== ENCOUNTER → 2022-11-27 09:32 | Outpatient (BNVA) | payer MEDICARE, MEDICAID, SELFPAY | PROVIDERS: PCP Family Medicine; Visit Provider Internal Medicine Cardiovascular Disease | DX: I11.9 Hypertensive heart disease without heart failure (principal); I20.1 Angina pectoris with documented spasm; Q03.1 Atresia of foramina of Magendie and Luschka; R42 Dizziness and giddiness | CPT/HCPCS: 99214 ==

== ENCOUNTER → 2023-06-04 12:17 | Outpatient (BNVA) | payer MEDICARE, MEDICAID, SELFPAY | PROVIDERS: PCP Family Medicine; Visit Provider Internal Medicine Cardiovascular Disease | DX: R07.9 Chest pain, unspecified (principal); I51.7 Cardiomegaly; I20.1 Angina pectoris with documented spasm; I10 Essential (primary) hypertension; R94.31 Abnormal electrocardiogram [ECG] [EKG]; I45.9 Conduction disorder, unspecified | CPT/HCPCS: 93005; 99214 ==

== ENCOUNTER 2023-06-10 13:19 | Outpatient (CLI) | payer MEDICARE, MEDICAID, SELFPAY ==
--- NOTE | 2023-06-10 14:30 | USCV_ITS ---
Jose Juan Vázquez Age: 28 Gender: M : 1995 Exam Date: 06/10/2023 14:44 Ordering Phys: Olga Melendez MD ([email or web address]) Technologist: LAURA [place] [facility] [place]ication: abnormal EKG, LVH, vasospastic angina BP: 114 / 80 HR: 172 Rhythm: Sinus Technical Quality: Adequate MEASUREMENTS (Male / Female) Normal Values 2D ECHO LV Diastolic Diameter PLAX 3.7 cm 4.2 - 5.9 / 3.9 - 5.3 cm IVS Diastolic Thickness 1.1 cm 0.6 - 1.0 / 0.6 - 0.9 cm IVS Systolic Thickness 1.6 cm LVPW Diastolic Thickness 0.9 cm 0.6 - 1.0 / 0.6 - 0.9 cm LVPW Systolic Thickness 1.2 cm LVOT Diameter 2.0 cm LV Ejection Fraction 2D Teich 64.7 % LV Ejection Fraction MOD 2C 49.3 % LV Ejection Fraction 2C AL 47.7 % LA Diameter 3.5 cm Aorta at Sinotubular Diameter 2.4 cm IVC Diameter 1.5 cm M-MODE LA Ao Ratio MM 1.6 DOPPLER AV Peak Velocity 88.0 cm/s LVOT Peak Velocity 87.0 cm/s AV Area Cont Eq vti 3.3 cm squared AV Area Cont Eq pk 3.2 cm squared MV Peak Velocity 85.0 cm/s MV Area PHT 7.4 cm squared Mitral E to A Ratio 1.2 TR Peak Velocity 76.0 cm/s TR Peak Gradient 2.3 mmHg TR Mean Velocity 59.0 cm/s TR Mean Gradient 1.5 mmHg TR Velocity Time Integral 12.7 cm Right Atrial Pressure 3.0 mmHg Pulmonary Artery Systolic Pressu 5.3 mmHg PV Peak Velocity 69.0 cm/s RV Ejection Time 0.3 s FINDINGS Left Ventricle Normal left ventricular size and systolic function, EF 55% (visual). Mild concentric left ventricular hypertrophy.abnormal septal motion consistent with conduction abnormality. Right Ventricle The right ventricle is normal in size and function. Right Atrium The right atrium is normal in size. Left Atrium Mildly increased left atrial size. Mitral Valve Thickened mitral valve. Aortic Valve No gross abnormalities noted Tricuspid Valve Trace tricuspid valve regurgitation. Pulmonic Valve Pulmonic valve not well visualized. Pericardium No pericardial effusion. Aorta Normal ascending aorta dimension. IVC Normal inferior vena cava. CONCLUSIONS Normal left ventricular size and systolic function, EF 55% (visual). Mild concentric left ventricular hypertrophy.abnormal septal motion consistent with conduction abnormality. Mildly increased left atrial size. Trace tricuspid valve regurgitation. Estimated pulmonary artery peak systolic pressure within normal limits. There is no pericardial effusion. Technically difficult study because of the poor ultrasonic window. Dr Olga Melendez MD FACC (Electronically Signed) Final Date: 12 June 2023 08:43 S
== END 2023-06-10 13:20 | disposition home or self-care (01) ==
LOC: RAD 13:19
PROVIDERS: PCP Family Medicine; Visit Provider Internal Medicine Cardiovascular Disease
DX: I51.7 Cardiomegaly (principal); I20.1 Angina pectoris with documented spasm; R93.1 Abnormal findings on diagnostic imaging of heart and coronary circulation; R94.31 Abnormal electrocardiogram [ECG] [EKG]
CPT/HCPCS: 93306

== ENCOUNTER 2024-06-02 13:47 | Outpatient (RCR) | payer MEDICARE, MEDICAID, SELFPAY | END 2024-06-22 23:59 | disposition home or self-care (01) | LOC: SPT 13:47 | PROVIDERS: Visit Provider Family Medicine | DX: H81.10 Benign paroxysmal vertigo, unspecified ear (principal) | CPT/HCPCS: 95992; 97112; 97161 ==

== ENCOUNTER 2024-06-23 05:00 | Outpatient (RCR) | payer MEDICARE, MEDICAID, SELFPAY | END 2024-07-22 23:59 | disposition home or self-care (01) | LOC: SPT 05:00 | PROVIDERS: Visit Provider Family Medicine | DX: H81.10 Benign paroxysmal vertigo, unspecified ear (principal) | CPT/HCPCS: 97112 ==

== ENCOUNTER → 2024-07-02 13:49 | Outpatient (BNVA) | payer MEDICARE, MEDICAID, SELFPAY | PROVIDERS: PCP Family Medicine; Visit Provider Internal Medicine Cardiovascular Disease | DX: I10 Essential (primary) hypertension (principal); I51.7 Cardiomegaly; I20.1 Angina pectoris with documented spasm; R94.31 Abnormal electrocardiogram [ECG] [EKG]; I25.2 Old myocardial infarction | CPT/HCPCS: 99214 ==

== ENCOUNTER 2024-07-20 14:52 | Outpatient (CLI) | payer MEDICARE, MEDICAID, SELFPAY ==
--- NOTE | 2024-07-20 15:09 | MR_ITS ---
WS: [id number] MRA CAROTID WITHOUT AND WITH GADOLINIUM ENHANCEMENT TECHNIQUE: Axial 2-D TOF and gadolinium bolus images obtained with axial images and axial, sagittal, and coronal 2-D reformatted images. CLINICAL INFORMATION: DIZZINESS COMPARISON: None. FINDINGS: RIGHT: RIGHT common carotid artery is patent. No significant RIGHT ICA stenosis. RIGHT ICA is patent to the skull base. LEFT: LEFT common carotid artery is patent. No significant LEFT ICA stenosis. LEFT ICA is patent to the skull base. Codominant and patent vertebral arteries bilaterally. Vertebral arteries are patent to the basilar junction. LEFT cerebellar hypoplasia or dysgenesis. Proximal subclavian arteries are patent. MR/MR angio neck w con* [id number] IMPRESSION: 1. No significant ICA stenosis bilaterally. 2. Codominant and patent vertebral arteries bilaterally patent to the basilar junction.
--- NOTE | 2024-07-20 15:09 | MR_ITS ---
WS: [id number] MRA HEAD TECHNIQUE: Axial 3-D TOF images obtained with axial images and axial, sagittal, and coronal 2-D reformatted images. CLINICAL INFORMATION: DIZINESS FINDINGS: Tiny distal vertebral arteries are patent. Diminutive but patent basilar artery. Normal vascularity to the OIL MIXER territory bilaterally. Both ICAs are patent at the skull base. Normal vascularity to the WILLARD and MCA territories bilaterally. No evidence of proximal flow-limiting stenosis. LEFT cerebellar hypoplasia or dysgenesis unchanged from the prior studies MR/MR angio head wo con [id number] IMPRESSION: 1. Tiny distal vertebral arteries are patent with a diminutive but patent basi lar artery. 2. No evidence of proximal flow-limiting stenosis.
== END 2024-07-20 14:53 | disposition home or self-care (01) ==
LOC: RAD 15:00
PROVIDERS: PCP Family Medicine; Visit Provider Family Medicine
DX: R42 Dizziness and giddiness (principal); R93.0 Abnormal findings on diagnostic imaging of skull and head, not elsewhere classified
CPT/HCPCS: 70544; 70548

== ENCOUNTER → 2025-01-05 08:02 | Outpatient (BNVA) | payer MEDICARE, MEDICAID, SELFPAY | PROVIDERS: PCP Family Medicine; Referring Provider Family Medicine; Visit Provider Specialist | DX: Q04.3 Other reduction deformities of brain (principal) | CPT/HCPCS: 99204 ==

== ENCOUNTER → 2025-02-16 10:19 | Outpatient (BNVA) | payer MEDICARE, MEDICAID, SELFPAY | PROVIDERS: PCP Family Medicine; Referring Provider Specialist; Visit Provider Specialist | DX: R42 Dizziness and giddiness (principal); R55 Syncope and collapse | CPT/HCPCS: 95819 ==